=== PATIENT | male | born 1980 | race Caucasian/White ===

== ENCOUNTER 2017-09-09 14:39 | Emergency (ER) | payer SELFPAY ==
[2017-09-09 14:41] VITALS: BP 130/77; PULSE 85; RESP 16; TEMP 36.9; O2SAT 97; BMI 24.2
[2017-09-09 14:53] VITALS: BP 137/99; PULSE 74; RESP 11; O2SAT 98
--- NOTE | 2017-09-09 15:34 | EKG12_ITS ---
Test Reason : CP Blood Pressure : / mmHG Vent. Rate : 064 BPM Atrial Rate : 064 BPM P-R Int : 158 ms QRS Dur : 094 ms QT Int : 380 ms P-R-T Axes : 041 058 032 degrees QTc Int : 392 ms Normal sinus rhythm Normal ECG Confirmed by GILBERT EPPERSON, RICK ([id number]), editor department ALEJANDRO MICHEL ([id number]) on 09/13/2017 1:10:45 PM Referred By: SHANIQUA Confirmed By:RICK HUNT MD
--- NOTE | 2017-09-09 16:10 | RAD_ITS ---
STUDY: X-RAY CHEST REASON FOR EXAM: Male, 37 years old. Chest pain. Right shoulder pain and rib pain. TECHNIQUE: PA and lateral views of the chest. COMPARISON: None. FINDINGS: The lungs are clear and expanded. There is no demonstrated pleural abnormality. Normal size heart. Normal mediastinum and milind. Normal visualized pulmonary arteries. Normal visualized aortic arch and descending thoracic aorta. Normal visualized thoracic spine. Normal visualized ribs, clavicles, and shoulders. There is no demonstrated abnormality of the visualized soft tissue structures of the upper abdomen. RAD/Chest PA and Lateral IMPRESSION: Normal x-ray examination of the chest. Electronically Signed: Derek Ramos MD at 16:32 EDT , Service support ,
[2017-09-09 16:19] LABS: Absolute Lymphocyte Count 2.09 X10^3/ul (0.83-4.51); Absolute Neutrophil Count 5.5 X10^3/uL (2.0-7.7); Basophil# 0.03 X10^3/uL; Basophil% 0.4 % (0-1); Eosinophil# 0.08 X10^3/uL; Hematocrit 45.7 % (40-54); Hemoglobin 15.6 g/dl (13.0-16.5); Lymphocyte # 2.09 X10^3/ul (4.0); Lymphocyte % 24.9 % (19-41); Mean Corp Hgb Conc 34.1 g/gl (32-36); Mean Corpuscular Hgb 30.5 pg (27.0-32.0); Mean Corpuscular Volume 89.3 fL (80-94); Monocyte# 0.73 X10^3/uL; Monocyte% 8.7 % (0-10); Neutrophil # 5.46 X10^3/uL (2.7-7.7); Neutrophil % 64.8 % (47-70); Platelet Count 235 K/mm3 (150-450); RBC Distribution Width CV 13.8 % (11.6-14.6); RBC Distribution Width SD 45.2 fl (35.1-43.9); Red Blood Count 5.12 M/mm3 (4.6-6.2); White Blood Count 8.4 K/mm3 (4.4-11.0)
[2017-09-09 16:21] LABS: POSITIVE COUNT NO; POSITIVE DIFFERENTIAL NO; POSITIVE MORPHOLOGY NO
[2017-09-09 16:36] LABS: Anion Gap 2 (5-15); BUN 8 mg/dL (7-18); BUN/Creat Ratio 7.1 RATIO (10-20); Calcium,Total 9.1 mg/dL (8.5-10.1); Chloride 106 mmol/L (98-107); Creatinine, Serum 1.13 mg/dL (0.70-1.30); EST Glomerular Filtration Rate 77 mL/min (>60); Est Glom Filt Rate - Afr Amer 93 mL/min (>60); Glucose 81 mg/dL (74-106); Sodium Level 139 mmol/L (136-145)
[2017-09-09 16:39] VITALS: BP 147/106; PULSE 73; RESP 13; O2SAT 96
[2017-09-09 17:57] LABS: D-Dimer Quantitative (DVT/PE) 0.27 FEU/ug/m (0.27-0.49)
--- NOTE | 2017-09-09 18:04 | ED.VISSUMM ---
- ER Visit Summary Date of Service: 09/09/17 Chief Complaint: Chest pain History of Present Illness: The patient is a 37 M who presents with chest pain. He complains of right lower and lateral chest pain. It is worse with laying on that side palpation or inspiration. He did have a recent flight to [place] although this was a short flight. No history of DVT or pulmonary embolism no history of coagulopathy no history of cancer. He is not short of breath. He is not coughing. No fevers nausea or vomiting. He does not recall any injury or increased activity when he strained his chest wall. He has no abdominal pain. Physical Examination: Afebrile vitals normal Moist mucous members Heart regular rate and rhythm Lungs are clear Abdomen soft Alert Test Results: EKG shows sinus rhythm at a rate of 64. CBC BMP normal. Troponin negative. D-dimer negative. Chest x-ray is normal. Emergency Department Course and Treatment: Patient was advised of the findings. He does not appear to have any serious or life-threatening pathology at this time. I suspect this is due to chest wall strain. He was given a prescription for naproxen. He understands to return for new or worsening symptoms. He was instructed on specific signs and symptoms to monitor for and will follow as an outpatient as needed. Treatment Plan: [] Disposition: Discharge Impression: Atypical chest pain This note was generated with [employer] dictation software. It may contain incorrect words, spelling, and punctuation that were not noted in review of the chart prior to signing ED Disposition - Plan for ED Patient: Chief Complaint: Chest Pain Referrals: Care Physician,No Primary [Primary Care Provider] -
--- NOTE | 2017-09-09 18:06 | ED.DEP ---
ED Disposition - Plan for ED Patient: Chief Complaint: Chest Pain Instructions: ED Chest Pain Atypical Unkn Cause Prescriptions: Naproxen [Naprosyn] 500 mg PO BID #20 tab Referrals: Care Physician,No Primary [Primary Care Provider] -
[2017-09-09 18:20] VITALS: BP 128/81; PULSE 70; RESP 16; O2SAT 99
== END 2017-09-09 18:20 | disposition home or self-care (01) ==
LOC: ED 15:31
PROVIDERS: Emergency Provider Emergency Medicine
DX: R07.89 Other chest pain (principal); Z72.0 Tobacco use
CPT/HCPCS: 36415; 71046; 80048; 84484; 85025; 85379; 93005; 99284; A4216

== ENCOUNTER → 2019-12-30 17:50 | Outpatient (CLI) | payer MEDICAID, SELFPAY | PROVIDERS: PCP Family Medicine; Referring Provider Family Medicine; Visit Provider Family Medicine | DX: Z03.818 Encounter for observation for suspected exposure to other biological agents ruled out (principal) | CPT/HCPCS: 87635; C9803; U0003 ==

== ENCOUNTER 2020-03-14 09:39 | Day surgery (SDC) | payer OTHER, MEDICAID, SELFPAY ==
[2020-02-29 13:47] VITALS: BMI 26.3
[2020-03-14] VITALS (7 sets, daily range): BP systolic 94–122; BP diastolic 71–90; PULSE 57–101; RESP 16; TEMP 36.7–36.8; O2SAT 97–100; BMI 24.0
--- NOTE | 2020-03-14 | COLBX_PTH ---
PATIENT: JAN PACHECO LOC: EN U#:[id number] AGE/SX: 39/M ROOM: RE03/14/[address]: Dr. Estuardo Palomo MD : 1980 BED: DIS: 03/14/2020 SPEC #: [id number] RECD: 03/14/20 13:54 STATUS: JASIEL STOCKTON #: [id number] JEM: 03/14/20 00:[address]: Estuardo Palomo DEPT: SURGICAL PATHOLOGY RECD BY: Emmanuel Gibson ENTERED: 03/14/20 13:55 SP TYPE: COLON BX OTHR DR: Dr. Mickey Huber MD Tissues: COLON BIOPSY Procedures: Surgery Specimen Level IV HEADER OPERATION: Colonoscopy (MAC) PRE-OP DIAGNOSIS: Change in bowel habit TISSUE SUBMITTED: Random colonic biopsy MICROSCOPIC DIAGNOSIS Colon, random biopsy: Fragments of colonic mucosa, no pathologic diagnosis. JUANCARLOS:steph 03/15/2020 MICROSCOPIC DESCRIPTION Slides are reviewed. GROSS DESCRIPTION Received in fixative is one container labeled with the patient's name and designated random colonic biopsy. The specimen consists of multiple irregular fragments of light burnett soft tissue that in aggregate measure 2 x 1 x 0.1 cm. The specimen is totally submitted in one cassette. / JUANCARLOS:steph 03/14/20 TC:4 CPT: 41737
[2020-03-14] MEDS: Lactated Ringers 1,000 ML 100 ML IV (10:12)
--- NOTE | 2020-03-14 10:18 | HP.PCM_ITS ---
Problem List (1) Change in bowel habit Status: Acute History and Physical Date of Admission: 03/14/20 Intake Visit Reasons: CSCOPE/ DIARRHEA Chief Complaint: change in bowel habits [employer] Required: No Is patient in pain?: No Allergies No Known Allergies Allergy (Verified 02/29/20 13:47) Medications NK 02/29/20 [History Confirmed 02/29/20] [facility] Medical History (Updated 02/29/20 @ 13:[address] Estuardo Palomo MD) Change in bowel habit (Acute) Change in bowel habits (Acute) Chronic pain in left shoulder (Chronic) Surgical History (Updated 02/29/20 @ 13:46 by Katheryn Martinez) History of mandibular surgery (Acute) history of broken arm (Acute) Family History (Updated 02/29/20 @ 13:47 by Katheryn Martinez) Mother Schizophrenia Hypertension Father Asthma Social History (Updated 02/29/20 @ 13:[address] Estuardo Palomo MD) Smoking Status: Current every day smoker HPI HPI HPI: JAN PACHECO, is a 39 M who presents to the office today for surgical con sultation regarding change of bowel habits. The patient is referred by Dr. Mickey Huber and a written copy of my surgical consult recommendations will be returned to him. Patient over a years time has had diarrhea. He was having trouble with employment and did a lot of sitting at home. Is not sure whether this could have been IBS. 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 This requires a significant amount of lifting and twisting and turning. His bowel habits have changed tremendously. Now he will not have a bowel movement but every other day. He thinks there may be problems with his rectum turning inside out. He can have intermittently some blood on the tissue. He denies abdominal pain. He has not had any unexpected weight loss. No family history of colon cancer. He has never previously had a colonoscopy. He did previously use marijuana and drink alcohol both of those have been ceased. He feels that otherwise generally he is more healthy. The patient is referred by his primary care physician Dr. Mickey Huber and a written copy of my surgical consult and recommendations will be returned to him HPI HPI HPI: JAN PACHECO, is a 39 M who presents to the office today for ROS General General: No weight change, appetite, fatigue, colon cancer, breast cancer or weakness HEENT HEENT: No difficulty swallowing, eye injury, eye surgery, swollen glands or hoarseness Endo Endocrine: No thyroid disease, diabetes mellitus, thyroid cancer, Hair loss, heat intolerance or cold intolerance Musc Musculoskeletal: No back problems, arthritis, rheumatoid arthritis, gout or joint pain Cardio Cardiovascular: No murmur, pacemaker, heart disease, atrial fibrillation, high blood pressure, heart attack, heart stent, palpitations, shortness of breat with exertion or chest pain Psych Psychiatric: No depression, anxiety or hearing voices Resp Respiratory: No shortness of breath, No sleep apnea, No cough, No COPD, No asthma, No emphysema, No wheezing Gastro Gastrointestinal: Yes abdominal pain, No nausea or vomiting, Yes diarrhea, Yes constipation, No blood in stool, No acid reflux, No hemorrhoids, No ulcers, No gallbladder problem, No black,tarry stools Garrett Hematologic: No blood thinners, No blood disorders, No bleeding, No anemia, No blood clots Neuro Neurologic: No weakness Exam Const General: cooperative, comfortable, no acute distress Nutritional Appearance: average body habitus Orientation: alert, awake HENNC Head: normal to inspection Resp Effort & Inspection: normal respiratory effort Auscultation: clear to auscultation bilaterally Cardio Rate: regular rate Rhythm: regular rhythm Heart Sounds: no murmurs GI Inspection: normal to inspection Palpation: soft, no hepatosplenomegaly Skin General: no rashes or lesions noted Neuro General: alert, awake Extrem General: no calf tenderness Assessment & Plan Problems 1. Change in bowel habit R19.4 Plan 39-year-old gentleman change of bowel habit. Occasional blood on the tissue pap er. Possible intermittent rectal prolapse or prolapsing internal hemorrhoids. I do recommend to him a colonoscopy. Because of his history of diarrhea would consider random colonic biopsies. He has had an opportunity to ask and have questions answered. We will schedule and proceed at his discretion. I very much appreciate the kind opportunity of assisting with his surgical care. Copy: Dr. Mickey Palomo M.D., F.A.C.S. Orders Orders: Colonoscopy Today Coding Level of Care Code 19458 Diagnoses Change in bowel habit R19.4 I have re-examined the patient. There are no clinical changes since date of exam. Procedure Criteria Procedure Type: Elective COVID Risk Discussion: The surgeon/proceduralist and patient have discussed in detail the risk of e xposure to and/or potential harm posed by the COVID-19 virus with having a surgery/procedure at this time versus the risk of delaying the surgery/procedure. It is not possible to know either the risk of delaying the surgery or procedure or chance of getting an infection with perfect accuracy, but a joint decision was made between the patient and the surgeon/proceduralist to proceed at this time with the scheduled surgery/procedure as indicated on the consent form.
--- NOTE | 2020-03-14 11:11 | OP.COLON_ITS ---
Patient Name: Sterling Cooley Procedure Date: 03/14/2020 10:08 AM Date of : 1980 Age: 39 Procedure: Colonoscopy Indications: Change in bowel habits Providers: Estuardo Palomo MD Referring MD: Mickey Huber Medicines: See the Anesthesia note for documentation of the administered medications Patient Profile: Last Colonoscopy: none. The patient's first colonoscopy is today. Complications: No immediate complications. Procedure: Pre-Anesthesia Assessment: - Prior to the procedure, a History and Physical was performed, and patient medications and allergies were reviewed. The patient's tolerance of previous anesthesia was also reviewed. The risks and benefits of the procedure and the sedation options and risks were discussed with the patient. All questions were answered, and informed consent was obtained. Prior Anticoagulants: The patient has taken no previous anticoagulant or antiplatelet agents. ASA Grade Assessment: I - A normal, healthy patient. After reviewing the risks and benefits, the patient was deemed in satisfactory condition to undergo the procedure. After I obtained informed consent, the scope was passed under direct vision. Throughout the procedure, the patient's blood pressure, pulse, and oxygen saturations were monitored continuously. The Colonoscope was introduced through the anus and advanced to the cecum, identified by appendiceal orifice and ileocecal valve. The colonoscopy was performed without difficulty. The patient tolerated the procedure well. The quality of the bowel preparation was excellent. The ileocecal valve and the appendiceal orifice were photographed. Scope In: 10:47:05 AM Scope Withdrawal Time 0 hours 9 minutes 42 seconds Scope Out: 11:01:48 AM Total Procedure Duration Time 0 hours 14 minutes 43 seconds Findings: The digital rectal exam findings include non-thrombosed internal hemorrhoids and internal hemorrhoids that prolapse with straining, but spontaneously regress to the resting position (Grade II). Pertinent negatives include normal prostate (size, shape, and consistency). A few diverticula were found in the sigmoid colon. Biopsies for histology were taken with a cold forceps from the entire colon for evaluation of microscopic colitis. The exam was otherwise without abnormality. Impression: - Non-thrombosed internal hemorrhoids and internal hemorrhoids that prolapse with straining, but spontaneously regress to the resting position (Grade II) found on digital rectal exam. - Diverticulosis in the sigmoid colon. Biopsied. - The examination was otherwise normal. Could consider future ppH stapled hemorrhoidopexy for bleeding internal hemorrhoids Recommendation: - Telephone my office for pathology results in 1 week. - Repeat colonoscopy age 48 for screening purposes. - Continue present medications. Procedure Code(s): --- Professional --- 00971, Colonoscopy, flexible; with biopsy, single or multiple Diagnosis Code(s): --- Professional --- K64.1, Second degree hemorrhoids R19.4, Change in bowel habit K57.30, Diverticulosis of large intestine without perforation or abscess without bleeding CPT copyright 2017 [employer]. All rights reserved. The codes documented in this report are preliminary and upon disposal man review may be revised to meet current compliance requirements. Estuardo Palomo MD 03/14/2020 11:10:28 AM This report has been signed electronically. Number of Addenda: 0 Note Initiated On: 03/14/2020 10:08 AM
--- NOTE | 2020-03-14 11:11 | OP.CCLET_ITS ---
03/14/2020 Mickey Huber [address] [place] [address] Re : Colonoscopy procedure for Sterling Cooley Dear Dr. Huber This procedure was performed on Saturday, March 14, 2020. My impressions and recommendations are as follows: Impressions : - Non-thrombosed internal hemorrhoids and internal hemorrhoids that prolapse with straining, but spontaneously regress to the resting position (Grade II) found on digital rectal exam. - Diverticulosis in the sigmoid colon. Biopsied. - The examination was otherwise normal. Could consider future ppH stapled hemorrhoidopexy for bleeding internal hemorrhoids Recommendations : - Telephone my office for pathology results in 1 week. - Repeat colonoscopy age 48 for screening purposes. - Continue present medications. My findings are described in the full procedure note, which is enclosed. If I can be of further assistance, please feel free to contact me at Doctor phone number(s): Work: . Sincerely, Estuardo Palomo MD 03/14/2020 11:10:28 AM This report has been signed electronically.
== END 2020-03-14 11:35 | disposition home or self-care (01) ==
LOC: EN 09:41 → AC 09:41
PROVIDERS: PCP Family Medicine; Referring Provider Family Medicine; Visit Provider Surgery
PROC: 0DJD8ZZ Inspection of Lower Intestinal Tract, Via Natural or Artificial Opening Endoscopic (ICD-10-PCS; CPT 45378; principal; 2020-03-14 10:40)
DX: K64.1 Second degree hemorrhoids (principal); K57.30 Diverticulosis of large intestine without perforation or abscess without bleeding; K58.9 Irritable bowel syndrome, unspecified; K21.9 Gastro-esophageal reflux disease without esophagitis; Z20.828 Contact with and (suspected) exposure to other viral communicable diseases; Z87.442 Personal history of urinary calculi; F17.200 Nicotine dependence, unspecified, uncomplicated
CPT/HCPCS: 45380; 87426; 88305; C9803; J7120